=== PATIENT | female | born 1980 | race Caucasian/White ===

== ENCOUNTER 2021-01-05 18:18 | Inpatient (IN) | payer OTHER ==
[~2021-01-05] VITALS: Ht 149.9 cm; Wt 93.8 kg
[~2021-01-05 18:18] MED LIST: ALPR.5; AMLO5; DIPH50 PO; ERYT333ERA PO; ESCI10; HYDACE5 PO; HYDCHL50 PO; HYDMOR4 PO; LISI20 PO; METO50 PO; Prinivil10 MG PO; Protonix40 MG PO; RXHYDACE PO; Sucralfate1 GM PO
[2021-01-05 19:17] LABS: BASOPHILS ABSOLUTE AUTO 0.02 K/mm3 (0.00-0.23); BASOPHILS PERCENT AUTO 0 % (0-2); EOSINOPHILS ABSOLUTE AUTO 0.02 K/mm3 (0.00-0.68); EOSINOPHILS PERCENT AUTO 0 % (0-6); Hematocrit 40.5 % (33.0-51.0); Hemoglobin 13.8 g/dL (11.5-16.0); IMMATURE GRAN ABSOLUTE AUTO 0.05 K/mm3 (0.00-0.10); IMMATURE GRAN PERCENT AUTO 0 % (0-1); LYMPHOCYTES ABSOLUTE AUTO 0.79 K/mm3 (0.84-5.20); LYMPHOCYTES PERCENT AUTO 6 % (21-46); MONOCYTES ABSOLUTE AUTO 0.29 K/mm3 (0.16-1.47); MONOCYTES PERCENT AUTO 2 % (4-13); Mean Corpuscular HGB 31.7 pg (26.0-34.0); Mean Corpuscular HGB Conc 34.1 g/dL (31.5-36.5); Mean Corpuscular Volume 93 fL (80-100); Mean Platelet Volume 10.1 fL (9.1-12.4); NEUTROPHILS ABSOLUTE AUTO 11.13 K/mm3 (1.96-9.15); NEUTROPHILS PERCENT AUTO 90 % (41-73); Platelet Count 309 K/mm3 (150-400); RDW Coefficient Variation 12.8 % (11.7-14.2); RDW Standard Deviation 43.9 fL (35.1-46.3); Red Blood Cell Count 4.36 M/mm3 (3.80-5.20)
[2021-01-05 19:41] LABS: Albumin, Blood 3.5 g/dL (3.4-5.0); Albumin/Globulin Ratio 0.8 (0.8-1.8); Bilirubin, Total 0.5 mg/dL (0.1-1.0); Bun/Creatinine Ratio 23.5 (12.0-20.0); Calcium, Blood 9.5 mg/dL (8.5-10.1); Creatinine, Blood 1.36 mg/dL (0.40-1.00); Globulin, Blood 4.4 g/dL (2.2-4.0); Potassium, Blood 3.6 mmol/L (3.5-5.5); Total Protein, Blood 7.9 g/dL (6.4-8.2)
[2021-01-05 19:47] LABS: International Normalized Ratio 1.04; Prothrombin Time Results 10.9 Sec (9.7-11.5)
[2021-01-05 23:48] LABS: SARS-Cov-2 (COVID-19) PCR, MMC NEGATIVE (NEGATIVE)
[2021-01-06] MEDS ORDERED: CLON.1 PO (03:26)
[2021-01-06] MEDS ORDERED: AMLO5 PO (03:40)
--- NOTE | 2021-01-06 06:19 | NUR ---
ASSUMPTION OF CARE PT ARRIVED TO ICU VIA GURNEY. MOVED TO ICU BED VIA SLIDER SHEET. PT A&OX4. FOLLOWING COMMANDS. MOVING ALL EXTREMITIES. C/O 10/10 HEADACHE TO R EYE FOR THE PAST TWO DAYS. R EYE PERIPHERAL VISION LOSS c NEW ONSET HEADACHE. PUPILS EQUAL, REACTIVE TO LIGHT. NO FACIAL DROOP. TONGUE DEVIATES TO RIGHT. MILD SLURRING OF SPEECH, PT STATES BASELINE SLURRING FROM PAST TIA, BUT THINKS THE SLURRING IS WORSE NOW. PT HAD TO WORK WITH SPEECH THERAPY IN THE PAST. PT WITH BASELINE HTN, SBP >150. LS-CLEAR. DENIES CP/ SOB. HEPARIN GTT INFUSING @ 17U/KG/HR. Q 1 NEURO CHECKS. WILL CONTINUE TO MONITOR.
--- NOTE | 2021-01-06 06:46 | NUR ---
REPEAT NEURO NO CHANGES FROM PREVIOUS NEURO ASSESSMENT.
--- NOTE | 2021-01-06 09:20 | NUR ---
Assumed care of pt at 0700. Report received from Daljit SHAFFER. Dr Poe and Aleida in to see patient. Discussed that pt is having pain. New orders received. Pt reports nausea. Zofran given. Will attempt PO meds when nausea has resolved.
--- NOTE | 2021-01-06 13:56 | NUR ---
Pt's spouse visiting at bedside. Updated on plan for patient to transfer to [facility] [place] instead of [facility]. Currently awaiting room assignment from receiving hospital.
--- NOTE | 2021-01-06 18:15 | NUR ---
SUMMARY Pt departed from ICU 6 for [facility] at 1815 accompanied by [facility]. Report given to [facility] nurse earlier this afternoon Neuro: A&O x 4. Answers questions. Follows commands. Verbalizes needs. Neuro check performed Q1H, assessment unchanged from initial assessment this morning. Pt stated that one dose of percocet resolved headache and pt had one dose of ondanestron for nausea. Resp: Unremarkable. Lungs clear, pt on room air. Cardiac: SR per monitor. BP stable but below parameter for metoprolol and lisinopril GI: Tolerating diet well. No BM this shift. : Mestruating. Pt has own supplies for menstrual management Skin: Unremarkable Psychosocial: Pleasant and cooperative. No apparent issues. Visited with significant other today
== END 2021-01-06 18:15 | disposition short-term general hospital (02) | DRG 93 ==
LOC: ER 18:18 → ICUE 01-06 03:16 → ICUW 01-06 03:16 → ICUE 01-06 04:33
PROVIDERS: Family Medicine; Physician Assistant; Student in an Organized Health Care Education/Training Program; ADMIT Family Medicine
DX: G08 Intracranial and intraspinal phlebitis and thrombophlebitis (principal); F32.9 Major depressive disorder, single episode, unspecified; I10 Essential (primary) hypertension; N18.9 Chronic kidney disease, unspecified; E04.9 Nontoxic goiter, unspecified; Z20.822 Contact with and (suspected) exposure to COVID-19; Z86.73 Personal history of transient ischemic attack (TIA), and cerebral infarction without residual deficits; Z87.891 Personal history of nicotine dependence; Z88.0 Allergy status to penicillin; Z88.5 Allergy status to narcotic agent; Z88.8 Allergy status to other drugs, medicaments and biological substances; Z90.49 Acquired absence of other specified parts of digestive tract; Z98.51 Tubal ligation status; Z98.890 Other specified postprocedural states; Z79.899 Other long term (current) drug therapy; F41.9 Anxiety disorder, unspecified
CPT/HCPCS: 36415; 70450; 70460; 76536; 80053; 84443; 85025; 85303; 85306; 85610; 85730; 86850; 86900; 86901; 96365-59; 96366; 96375-59; 96376; 96376-59; 99285-25; A9270; J1200; J1644; J2765; Q9967; U0004

== ENCOUNTER → 2021-04-28 | Outpatient (CLI) | payer OTHER ==
[~2021-04-28] MED LIST changes: +AMLO5 PO; +CLON.1 PO
== END | disposition home or self-care (01) ==
LOC: LAB SHORT 18:26
DX: R53.83 Other fatigue (principal)
CPT/HCPCS: 87077; 87086; 87186

== ENCOUNTER 2021-08-16 14:04 | Emergency (ER) | payer OTHER ==
[~2021-08-16] VITALS: Ht 149.9 cm; Wt 95.2 kg
== END 2021-08-16 15:05 | disposition home or self-care (01) ==
LOC: ER 14:04
DX: R79.1 Abnormal coagulation profile (principal); Z88.0 Allergy status to penicillin; Z88.8 Allergy status to other drugs, medicaments and biological substances; Z88.5 Allergy status to narcotic agent; Z79.899 Other long term (current) drug therapy; I10 Essential (primary) hypertension; Z87.891 Personal history of nicotine dependence
CPT/HCPCS: 99282; A9270; J3430

== ENCOUNTER → 2024-09-25 | Outpatient (CLI) | payer OTHER | LOC: LAB 15:21 → LAB SHORT 15:21 | DX: L98.9 Disorder of the skin and subcutaneous tissue, unspecified (principal) | CPT/HCPCS: 88304 ==